=== PATIENT | male | born 1980 | race Caucasian/White ===

== ENCOUNTER 2023-01-23 08:00 | Outpatient (CLI) | payer OTHER ==
--- NOTE | 2023-01-23 18:00 | XRAY Report ---
PROCEDURE: Ankle 3 View RT INDICATIONS: SPRAIN OF RIGHT ANKLE TECHNIQUE: 3 views of the ankle were acquired. COMPARISON: None. FINDINGS: Bones: Curvilinear ossific density adjacent to the lateral process of the talus, best seen on AP vie w. Ankle mortise is normally aligned on nonweightbearing view. No suspicious bony lesions. Soft tissues: No tibiotalar joint effusion. Achilles tendon appears normal. Marked soft tissue swe lling about the ankle. IMPRESSION: Curvilinear ossific density adjacent to the lateral process of the talus is suspicious for an avulsio n fracture. Consider radiographic follow-up in 7-10 days. Reviewed by: Katalina Matta MD on 01/23/2023 5:59 PM PST Approved by: Katalina Matta MD on 01/23/2023 5:59 PM PST Station ID: [id number]
== END 2023-01-23 23:59 | disposition home or self-care (01) ==
LOC: DI.S 08:00
PROVIDERS: ATTEND Emergency Medicine
DX: S93.411A Sprain of calcaneofibular ligament of right ankle, initial encounter (principal)